=== PATIENT | female | born 2000 | race Two or more races ===

== ENCOUNTER 2020-09-14 03:35 | Emergency (ER) | payer OTHER ==
[~2020-09-14] VITALS: Ht 152.4 cm; Wt 44.0 kg
[~2020-09-14 03:35] MED LIST: BACTRIM DS TABL1 TAB PO; LEVSIN/SL0.125 MG SL
== END 2020-09-14 10:00 | disposition home or self-care (01) ==
LOC: ER 03:35
DX: R10.2 Pelvic and perineal pain (principal)

== ENCOUNTER → 2023-03-27 | Emergency (ER) | payer OTHER | END | disposition left against medical advice (07) | LOC: ER 19:52 | DX: Z53.21 Procedure and treatment not carried out due to patient leaving prior to being seen by health care provider (principal) ==